=== PATIENT | female | born 2000 | race Caucasian/White ===

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

== ENCOUNTER 2022-04-22 20:48 | Emergency (ER) | payer OTHER ==
[2022-04-22] MEDS ORDERED: Ibuprofen 800 MG TAB ONE (21:33)
== END 2022-04-22 21:38 | disposition home or self-care (01) ==
LOC: NAV ERS 20:48
DX: J06.9 Acute upper respiratory infection, unspecified (principal); F41.9 Anxiety disorder, unspecified; H65.91 Unspecified nonsuppurative otitis media, right ear
CPT/HCPCS: 99283

== ENCOUNTER 2024-04-26 12:48 | Emergency (ER) | payer SELFPAY | END 2024-04-26 14:06 | disposition home or self-care (01) | LOC: NAV ERS 12:48 | DX: M79.672 Pain in left foot (principal) | CPT/HCPCS: 99283 ==

== ENCOUNTER 2024-05-16 16:13 | Emergency (ER) | payer SELFPAY ==
[2024-05-16] MEDS ORDERED: Naproxen 500 MG TAB ONE (16:42)
== END 2024-05-16 16:55 | disposition home or self-care (01) ==
LOC: NAV ERS 16:13
DX: T20.50XA Corrosion of first degree of head, face, and neck, unspecified site, initial encounter (principal); T21.52XA Corrosion of first degree of abdominal wall, initial encounter; T21.54XA Corrosion of first degree of lower back, initial encounter; T32.0 Corrosions involving less than 10% of body surface; X10.1XXA Contact with hot food, initial encounter
CPT/HCPCS: 99283

== ENCOUNTER 2025-06-27 18:28 | Emergency (ER) | payer SELFPAY ==
[2025-06-27] MEDS ORDERED: Metoclopramide HCl 10 MG (2 mL) VIAL ONE (18:58)
[2025-06-27] MEDS ORDERED: diphenhydrAMINE 50 MG/ML VIAL ONE (18:58)
== END 2025-06-27 20:20 | disposition home or self-care (01) ==
LOC: NAV ERS 18:28
DX: G43.919 Migraine, unspecified, intractable, without status migrainosus (principal)
CPT/HCPCS: 96374; 96375; J1200; J2765; J7030